=== PATIENT | female | born 1960 | race Caucasian/White ===

== ENCOUNTER 2020-05-25 10:54 | Outpatient (CLI) | payer SELFPAY ==
--- NOTE | 2020-05-25 10:59 | XR_ITS ---
WS: [id number] XR chest 2V* [id number] REASON FOR EXAM: dry cough FINDINGS: The chest is unchanged compared to previous examination of 09/02/2018 Small calcified granuloma in the left lower lung. Normal heart size. XR/XR chest 2V* [id number] IMPRESSION: Stable chest without acute abnormality identified.
== END 2020-05-25 10:55 | disposition home or self-care (01) ==
PROVIDERS: PCP Family Medicine; Visit Provider Internal Medicine
DX: R05 Cough (principal)
CPT/HCPCS: 71046

== ENCOUNTER 2020-10-26 13:57 | Outpatient (CLI) | payer SELFPAY ==
--- NOTE | 2020-10-26 13:59 | MM_ITS ---
WS: [id number] BILATERAL DIGITAL SCREENING MAMMOGRAM WITH CAD CLINICAL INFORMATION: SCREENING HISTORY: Screening mammogram. No current complaints. COMPARISON: July 29, 2018 TECHNIQUE: Bilateral CC and MLO views. FINDINGS: Fatty-replaced breasts bilaterally. No suspicious focal mass, asymmetry, calcifications, or data solutions architect ural distortion. No evidence of malignancy. MM/[place] [id number] IMPRESSION: BI-RADS: 1-Negative FOLLOW UP: 1 Year Follow-up Recommend return to annual screening mammography.
== END 2020-10-26 13:58 | disposition home or self-care (01) ==
LOC: RADSHAW 13:58
PROVIDERS: PCP Nurse Practitioner Family; Visit Provider Nurse Practitioner Family
DX: Z12.31 Encounter for screening mammogram for malignant neoplasm of breast (principal)
CPT/HCPCS: 77067

== ENCOUNTER → 2021-06-07 10:03 | Outpatient (BNVA) | payer SELFPAY | PROVIDERS: PCP Nurse Practitioner Family; Visit Provider Internal Medicine Critical Care Medicine | DX: Z01.812 Encounter for preprocedural laboratory examination (principal); Z20.822 Contact with and (suspected) exposure to COVID-19 | CPT/HCPCS: 87635 ==

== ENCOUNTER 2021-06-14 08:30 | Outpatient (CLI) | payer SELFPAY ==
--- NOTE | 2021-06-14 10:38 | PFTS_ITS ---
Date of Study:06/14/21 Date of Dictation: 06/14/2021 MECHANICS: Prebronchodilator forced vital capacity (FVC) is normal. Prebronchodilator forced expiratory volume in one second (FEV1) is normal. FEV1/FVC is normal. FLOW VOLUME LOOP: Normal . LUNG VOLUMES: Total lung capacity (TLC) is normal. Residual volume (RV) is normal. DIFFUSING CAPACITY FOR CARBON MONOXIDE: Normal . INTERPRETATION: The pulmonary function tests are normal MTDD
== END 2021-06-14 08:31 | disposition home or self-care (01) ==
LOC: RT 08:31
PROVIDERS: PCP Nurse Practitioner Family; Visit Provider Internal Medicine Critical Care Medicine
DX: J42 Unspecified chronic bronchitis (principal)
CPT/HCPCS: 94010; 94726; 94729

== ENCOUNTER 2021-08-08 11:05 | Outpatient (CLI) | payer SELFPAY ==
--- NOTE | 2021-08-08 11:00 | CT_ITS ---
WS: [id number] LDCT LUNG CANCER SCREENING HISTORY: lung screening TECHNIQUE: Axial imaging performed from the apices to 1 cm below the costophrenic angles. Coronal and sagittal reformats are submitted with axial MIP series. All CT scans at [facility] use at least one of these dose optimization techniques: automated exposure control; mA and/or kV adjustment per patient size (includes targeted exams where dose is matched to clinical indication); or iterativ e reconstruction. DLP: 54.19 mGy.cm DIvol: 1.58 mGy COMPARISON: None available. Diagnostic quality: Satisfactory Lung Nodules: None. Lungs: No significant hyperexpansion. No bullous disease. Benign calcified granuloma RIGHT upper lobe . Heart: Normal. Other findings: Healed rib fracture with callus formation in the posterior mid RIGHT thorax. CT/CT lung screening [id number] IMPRESSION: LUNG-RADS: 1-Negative FOLLOW UP: 12 Month: Continue annual screening with LDCT OTHER FINDINGS (S MODIFIER): None.
== END 2021-08-08 11:06 | disposition home or self-care (01) ==
LOC: RAD 11:07
PROVIDERS: PCP Nurse Practitioner Family; Visit Provider Internal Medicine Critical Care Medicine
DX: Z12.2 Encounter for screening for malignant neoplasm of respiratory organs (principal); Z87.891 Personal history of nicotine dependence
CPT/HCPCS: 71271

== ENCOUNTER → 2021-11-06 16:31 | Outpatient (BNVA) | payer SELFPAY | PROVIDERS: PCP Nurse Practitioner Family; Visit Provider Nurse Practitioner Family | DX: R07.9 Chest pain, unspecified (principal) | CPT/HCPCS: 80053; 80061; 84443; 85025 ==

== ENCOUNTER 2022-03-15 06:11 | Outpatient (CLI) | payer SELFPAY ==
--- NOTE | 2022-03-15 06:15 | US_ITS ---
WS: [id number] RIGHT UPPER QUADRANT ULTRASOUND HISTORY: R10.11 - Right upper quadrant pain COMPARISON: 09/08/2018 Liver: 15.3 cm in length. Normal size liver. No bile duct dilatation or mass. Portal Vein: Normal hepatopetal flow with monophasic waveform. Gallbladder: Normally distended gallbladder with no stones or wall thickening. CBD: 0.2 cm Pancreas: Normal size and echogenicity. Right kidney: 9.6 cm in length. Normal size and echogenicity. No hydronephrosis or mass. Aorta and IVC: Unremarkable abdominal aorta and IVC. No ascites. US/US gall bladder [id number] IMPRESSION: Normal RIGHT upper quadrant ultrasound.
== END 2022-03-15 06:12 | disposition home or self-care (01) ==
LOC: RAD 06:13
PROVIDERS: PCP Nurse Practitioner Family; Visit Provider Nurse Practitioner Family
DX: R10.11 Right upper quadrant pain (principal)
CPT/HCPCS: 76705

== ENCOUNTER 2022-04-19 13:53 | Outpatient (CLI) | payer SELFPAY ==
--- NOTE | 2022-04-19 14:17 | XR_ITS ---
WS: [id number] Exam: XR foot RT min 3V* [id number] Date/Time of Exam: 04/19/2022 2:20 PM Reason For Exam: M79.671 - Pain in right foot There is a comminuted nondisplaced fracture of the distal third of the third metatarsal. There is als o a comminuted fracture at the base of the second metatarsal that may be a subacute fracture. This ma y be a delayed union fracture. No other fractures are noted. Moderate bunion deformity. Normal soft t issues. XR/XR foot RT min 3V* [id number] IMPRESSION: 1. Acute comminuted nondisplaced fracture of the distal third metatarsal. 2. Comminuted fracture at the base of the second metatarsal. This appears subac kashia and may represent a nonunion or delayed union fracture. 3. Pronounced bunion.
== END 2022-04-19 13:54 | disposition home or self-care (01) ==
PROVIDERS: PCP Nurse Practitioner Family; Visit Provider Nurse Practitioner Family
DX: S92.334A Nondisplaced fracture of third metatarsal bone, right foot, initial encounter for closed fracture (principal); S92.321A Displaced fracture of second metatarsal bone, right foot, initial encounter for closed fracture; M21.611 Bunion of right foot; X58.XXXA Exposure to other specified factors, initial encounter
CPT/HCPCS: 73630

== ENCOUNTER → 2022-04-24 15:15 | Outpatient (BNVA) | payer SELFPAY | PROVIDERS: PCP Nurse Practitioner Family; Visit Provider Podiatrist Foot & Ankle Surgery | DX: Q66.71 Congenital pes cavus, right foot (principal); Q66.72 Congenital pes cavus, left foot; S92.334A Nondisplaced fracture of third metatarsal bone, right foot, initial encounter for closed fracture; S92.324K Nondisplaced fracture of second metatarsal bone, right foot, subsequent encounter for fracture with nonunion; Y99.9 Unspecified external cause status | CPT/HCPCS: 73630 ==

== ENCOUNTER → 2022-05-23 14:02 | Outpatient (BNVA) | payer SELFPAY | PROVIDERS: PCP Nurse Practitioner Family; Visit Provider Podiatrist Foot & Ankle Surgery | DX: M21.611 Bunion of right foot (principal); M21.612 Bunion of left foot; S92.334D Nondisplaced fracture of third metatarsal bone, right foot, subsequent encounter for fracture with routine healing; S92.324K Nondisplaced fracture of second metatarsal bone, right foot, subsequent encounter for fracture with nonunion; M21.6X1 Other acquired deformities of right foot; M21.6X2 Other acquired deformities of left foot; X58.XXXD Exposure to other specified factors, subsequent encounter | CPT/HCPCS: 73630 ==

== ENCOUNTER → 2022-06-11 09:48 | Outpatient (BNVA) | payer SELFPAY | PROVIDERS: PCP Nurse Practitioner Family; Visit Provider Podiatrist Foot & Ankle Surgery | DX: S92.331D Displaced fracture of third metatarsal bone, right foot, subsequent encounter for fracture with routine healing (principal); M21.611 Bunion of right foot; M21.612 Bunion of left foot; M21.6X9 Other acquired deformities of unspecified foot; X58.XXXD Exposure to other specified factors, subsequent encounter; S92.321K Displaced fracture of second metatarsal bone, right foot, subsequent encounter for fracture with nonunion | CPT/HCPCS: 73630 ==

== ENCOUNTER 2022-12-10 15:22 | Emergency (ER) | payer SELFPAY ==
--- NOTE | 2022-12-10 15:41 | XRR_ITS ---
PROCEDURE INFORMATION: Exam: XR Chest Exam date and time: 12/10/2022 3:46 PM Age: 62 years old Clinical indication: Pain; Angina pectoris; Additional info: Chest pain TECHNIQUE: Imaging protocol: Radiologic exam of the chest. Views: 1 view. COMPARISON: CT lung screening [id number] 08/08/2021 11:17 AM FINDINGS: Lungs: Unremarkable. No consolidation. Pleural spaces: Unremarkable. No pleural effusion. No pneumothorax. Heart/Mediastinum: Unremarkable. No cardiomegaly. Bones/joints: Unremarkable. XR/XR chest 1V portable [id number] IMPRESSION: No acute findings.
[2022-12-10 15:51] VITALS: BP 140/88; PULSE 95; RESP 18; TEMP 36.6; O2SAT 99; BMI 26.0
--- NOTE | 2022-12-10 15:57 | ECG_ITS ---
[facility] Test Date: 2022-12-10 Pat Name: Josué Albert Department: Room: Gender: Female Rough Carpenter: : 1960 Requested By: Neil Boss Order Number: [id number] Erickson MD: Cl Marcial M.D. Measurements Intervals [place] Rate: 86 P: 52 PA: 138 QRS: 41 QRSD: 89 T: 53 QT: 370 QTc: 443 Interpretive Statements SINUS RHYTHM No previous ECG available for comparison Electronically Signed On 12-10-2022 16:26:26 CDT by Cl Marcial M.D. [email or web address]
== END 2022-12-10 16:41 | disposition left against medical advice (07) ==
LOC: ER 15:28
PROVIDERS: Emergency Provider Family Medicine; PCP Nurse Practitioner Family
DX: Z53.21 Procedure and treatment not carried out due to patient leaving prior to being seen by health care provider (principal)
CPT/HCPCS: 71045; 93005

== ENCOUNTER 2023-10-23 10:29 | Outpatient (RCR) | payer SELFPAY | END 2023-11-19 23:59 | disposition home or self-care (01) | LOC: SPT 10:29 | PROVIDERS: Visit Provider Physician Assistant | DX: Z98.890 Other specified postprocedural states (principal) | CPT/HCPCS: 97162 ==

== ENCOUNTER → 2024-06-09 09:38 | Outpatient (BNVA) | payer MEDICARE, OTHER, SELFPAY | PROVIDERS: PCP Nurse Practitioner Family; Visit Provider Nurse Practitioner Family | DX: I10 Essential (primary) hypertension (principal) | CPT/HCPCS: 80053; 80061; 84443; 85025 ==

== ENCOUNTER 2024-08-17 06:57 | Outpatient (RCR) | payer MEDICARE, OTHER, SELFPAY | END 2024-08-21 23:59 | disposition home or self-care (01) | LOC: SPT 06:57 | PROVIDERS: PCP Nurse Practitioner Family; Visit Provider Nurse Practitioner Family | DX: M54.9 Dorsalgia, unspecified (principal); G89.29 Other chronic pain | CPT/HCPCS: 97110; 97161 ==

== ENCOUNTER 2024-08-22 06:30 | Outpatient (RCR) | payer MEDICARE, OTHER, SELFPAY | END 2024-09-18 23:59 | disposition home or self-care (01) | LOC: SPT 06:30 | PROVIDERS: PCP Nurse Practitioner Family; Visit Provider Nurse Practitioner Family | DX: M54.9 Dorsalgia, unspecified (principal); G89.29 Other chronic pain | CPT/HCPCS: 97110; 97112 ==

== ENCOUNTER 2024-09-19 06:00 | Outpatient (RCR) | payer MEDICARE, OTHER, SELFPAY | END 2024-10-19 23:59 | disposition home or self-care (01) | LOC: SPT 06:00 | PROVIDERS: PCP Nurse Practitioner Family; Visit Provider Nurse Practitioner Family | DX: M54.9 Dorsalgia, unspecified (principal); G89.29 Other chronic pain | CPT/HCPCS: 97110 ==

== ENCOUNTER 2024-10-20 05:26 | Outpatient (RCR) | payer MEDICARE, OTHER, SELFPAY | END 2024-11-02 09:07 | disposition home or self-care (01) | LOC: SPT 05:26 | PROVIDERS: PCP Nurse Practitioner Family; Visit Provider Nurse Practitioner Family | DX: M54.9 Dorsalgia, unspecified (principal); G89.29 Other chronic pain | CPT/HCPCS: 97110 ==

== ENCOUNTER 2025-02-08 09:13 | Outpatient (RCR) | payer MEDICARE, OTHER, SELFPAY | END 2025-02-18 23:55 | disposition home or self-care (01) | LOC: SPT 09:13 | PROVIDERS: Visit Provider Physician Assistant | DX: Z98.890 Other specified postprocedural states (principal) | CPT/HCPCS: 97110; 97161 ==

== ENCOUNTER 2025-02-19 05:00 | Outpatient (RCR) | payer MEDICARE, OTHER, SELFPAY | END 2025-03-21 23:59 | disposition home or self-care (01) | LOC: SPT 05:00 | PROVIDERS: Visit Provider Physician Assistant | DX: Z98.890 Other specified postprocedural states (principal) | CPT/HCPCS: 97110; 97530 ==

== ENCOUNTER 2025-03-22 05:00 | Outpatient (RCR) | payer MEDICARE, OTHER, SELFPAY | END 2025-04-01 09:34 | disposition home or self-care (01) | LOC: SPT 05:00 | PROVIDERS: Visit Provider Physician Assistant | DX: Z98.890 Other specified postprocedural states (principal) | CPT/HCPCS: 97110 ==